=== PATIENT | male | born 1960 | race Caucasian/White ===

== ENCOUNTER 2022-06-29 12:33 | Inpatient (IN) | payer MEDICAID, SELFPAY ==
[~2022-06-29] VITALS: Ht 152.4 cm; Wt 87.1 kg
[2022-06-29 14:11] LABS: BASOPHILS % 0.5 % (0.0-2.0); EOSINOPHILS % 0.6 % (0.0-5.0); HEMATOCRIT. 46.4 % (42.0-52.0); HEMOGLOBIN. 16.2 g/dL (14.0-18.0); LYMPHOCYTES % 10.3 % (20.0-50.0); MEAN CORPUSCULAR HEMOGLOBIN 30.4 pg (28.0-32.0); MEAN CORPUSCULAR VOLUME 87.3 fL (80.0-94.0); MEAN PLATELET VOLUME 8.9 fl (7.4-10.4); MONOCYTES % 12.9 % (2.0-8.0); NEUTROPHILS % 75.7 % (40.0-76.0); PLATELET 201 x1000/uL (130-400); RED BLOOD CELL COUNT 5.32 mill/uL (4.7-6.1); RED CELL DISTRIBUTION WIDTH 13.4 % (11.6-14.6)
[2022-06-29 14:14] LABS: CHLORIDE 103 mEq/L (98-107)
[2022-06-29 14:24] LABS: ETHANOL BLOOD < 10 mg/dL
[2022-06-29 14:35] LABS: CLARITY URINE CLEAR (CLEAR); COLOR URINE YELLOW (YELLOW); KETONES URINE NEGATIVE (NEGATIVE); LEUKOCYTE ESTERASE URINE NEGATIVE (NEGATIVE); NITRITE URINE NEGATIVE (NEGATIVE); OCCULT BLOOD URINE NEGATIVE (NEGATIVE); PH URINE 7.5 (4.5-8.0); PROTEIN URINE NEGATIVE (NEGATIVE); SPECIFIC GRAVITY URINE 1.011 (1.005-1.030); UROBILINOGEN URINE 0.2 E.U./dL (0.2-1.0)
[2022-06-29 14:54] LABS: PHOSPHORUS 2.3 mg/dL (2.5-4.9)
[2022-06-29 20:00] VITALS: BP 172/95
[2022-06-29] MEDS ORDERED: ONDANSETRON HCL 4MG/2ML INJ IV PRN (20:00)
[2022-06-29] MEDS ORDERED: CLONIDINE 0.1MG TABLET PO PRN (20:00)
[2022-06-29] MEDS ORDERED: DIPHENHYDRAMINE 50MG/ML VIAL IV PRN (20:00)
[2022-06-29] MEDS ORDERED: IPRATROPIUM/ALBUTEROL 0.5-3(2.5)MG/3ML NEB HHN PRN (20:00)
[2022-06-29 21:30] VITALS: BP 170/72
[2022-06-29] MEDS: ACETAMINOPHEN 325MG TABLET PO PRN (21:57)
[2022-06-30] VITALS: BP 127/75
[2022-06-30 04:00] VITALS: BP 123/78
[2022-06-30 08:00] VITALS: BP 142/98
[2022-06-30 09:51] LABS: HEMATOCRIT. 47.4 % (42.0-52.0); HEMOGLOBIN. 16.2 g/dL (14.0-18.0); MEAN CORPUSCULAR HEMOGLOBIN 30.6 pg (28.0-32.0); MEAN CORPUSCULAR VOLUME 89.5 fL (80.0-94.0); PLATELET 168 x1000/uL (130-400); RED CELL DISTRIBUTION WIDTH 13.2 % (11.6-14.6)
[2022-06-30 10:41] LABS: CHLORIDE 105 mEq/L (98-107)
[2022-06-30 12:00] VITALS: BP 147/92
[2022-06-30] MEDS: ACETAMINOPHEN 325MG TABLET PO PRN (12:13)
[2022-06-30 16:00] VITALS: BP 121/78
[2022-06-30 19:00] LABS: PLATELET ESTIMATE NORMAL
[2022-06-30 20:00] VITALS: BP 139/80
[2022-06-30] MEDS: CARBIDOPA/LEVODOPA 10/100MG TABLET PO SCH (21:29)
[2022-07-01] VITALS: BP 135/82
[2022-07-01 04:00] VITALS: BP 128/58
[2022-07-01] MEDS: CARBIDOPA/LEVODOPA 10/100MG TABLET PO SCH ×3 (05:03→22:06)
[2022-07-01 07:55] VITALS: BP 152/98
[2022-07-01 12:00] VITALS: BP 110/72
[2022-07-01] MEDS: ACETAMINOPHEN 325MG TABLET PO PRN (13:09)
[2022-07-01 16:00] VITALS: BP 135/80
[2022-07-01 20:00] VITALS: BP 117/67
[2022-07-02] VITALS: BP 130/67
[2022-07-02 04:00] VITALS: BP 119/80
[2022-07-02] MEDS: CARBIDOPA/LEVODOPA 10/100MG TABLET PO SCH ×3 (06:23→22:05)
[2022-07-02 06:43] LABS: HEMATOCRIT. 46.4 % (42.0-52.0); HEMOGLOBIN. 15.8 g/dL (14.0-18.0); MEAN CORPUSCULAR HEMOGLOBIN 30.5 pg (28.0-32.0); MEAN CORPUSCULAR VOLUME 89.3 fL (80.0-94.0); MEAN PLATELET VOLUME 8.9 fl (7.4-10.4); PLATELET 165 x1000/uL (130-400); RED CELL DISTRIBUTION WIDTH 13.1 % (11.6-14.6)
[2022-07-02 07:09] LABS: CHLORIDE 105 mEq/L (98-107)
[2022-07-02 08:00] VITALS: BP 125/75
[2022-07-02 09:30] LABS: PLATELET ESTIMATE NORMAL
[2022-07-02 12:00] VITALS: BP 128/71
[2022-07-02 16:00] VITALS: BP 111/80
[2022-07-02 20:00] VITALS: BP 122/77
[2022-07-03] VITALS: BP 121/51
[2022-07-03 04:00] VITALS: BP 139/79
[2022-07-03] MEDS: CARBIDOPA/LEVODOPA 10/100MG TABLET PO SCH (05:31)
[2022-07-03] MEDS ORDERED: CARB-31 PO (07:07)
[2022-07-03 08:00] VITALS: BP 131/86
[2022-07-03 12:00] VITALS: BP 138/84
[2022-07-03 14:44] VITALS: BP 135/84
== END 2022-07-03 15:06 | disposition home or self-care (01) | DRG 42 ==
LOC: ER 12:37 → EDBEDREQ 16:24 → EDBEDREQTM 17:06 → EDBEDREQ 17:06 → ENRESERV 19:56 → 6EST 21:22 → 7WST 07-02 11:45
PROVIDERS: ADMIT Internal Medicine; ATTEND Internal Medicine
PROC: 4A00X4Z Measurement of Central Nervous Electrical Activity, External Approach (ICD-10-PCS; principal; 2022-07-01)
DX: G20 Parkinson's disease (principal); U07.1 COVID-19
CPT/HCPCS: 36415; 70551; 71045; 80048; 80053; 80320; 81003; 83605; 83735; 83880; 84100; 84145; 84443; 84484; 85025; 86141; 87426; 93005; 95816; 97161; 97165; 99285; G0480